=== PATIENT | female | born 1970 | race Caucasian/White ===

== ENCOUNTER 2020-05-21 01:30 | Emergency (ER) | payer SELFPAY ==
[~2020-05-21] VITALS: Ht 165.1 cm; Wt 75.7 kg
[2020-05-21 01:45] VITALS: BP 119/83; Ht 165.1 cm; Wt 75.7 kg
== END 2020-05-21 02:26 | disposition home or self-care (01) ==
LOC: ED 01:30
DX: L03.031 Cellulitis of right toe (principal)